=== PATIENT | female | born 1975 | race Caucasian/White ===

== ENCOUNTER 2016-07-22 00:02 | Emergency (ER) | payer SELFPAY ==
[~2016-07-22] VITALS: Ht 162.6 cm; Wt 81.5 kg
[~2016-07-22 00:02] MED LIST: ACET325T33 PO; NAPR-260 PO
[2016-07-22 00:06] VITALS: Ht 162.6 cm; Wt 81.5 kg
== END 2016-07-22 02:09 | disposition left against medical advice (07) ==
LOC: E/R 00:02
DX: Z53.21 Procedure and treatment not carried out due to patient leaving prior to being seen by health care provider (principal)

== ENCOUNTER 2016-10-25 08:59 | Emergency (ER) | payer OTHER ==
[~2016-10-25] VITALS: Wt 72.7 kg
[2016-10-25] MEDS ORDERED: FLUORESCEIN STRIP LEFT EYE ONE (09:30)
[2016-10-25] MEDS ORDERED: TETRACAINE 0.5% 4 ML OPH LEFT EYE ONE (09:30)
[2016-10-25] MEDS ORDERED: CPR3OO3.5 LEFT EYE (09:55)
[2016-10-25] MEDS ORDERED: IBUP-1542 PO (09:55)
--- NOTE | 2016-10-25 10:16 | ERD ---
ER Documentation Chief Complaint Date/Time DATE: 10/25/16 TIME: 10:13 Chief Complaint pink eye lJahaira HPI Patient is a 41-year-old female who presents to the ED with left eye redness and itchiness and pain 3 days. She states that she went to her primary care doctor and was given Polytrim drops. However she states that her symptoms have not improved. She states that her doctor told her to return and see her but she came to the ER instead. She has not seen a specialist. She states that she feels that something is in her eye. She denies pain with eye movement or blurry vision. She denies headache or dizziness. Denies fever or chills. No other complaints. ROS All systems reviewed and are negative except as per history of present illness. Medications Home Meds Active Scripts Ibuprofen* (Motrin*) 600 Mg Tab, 600 MG PO Q6, #30 TAB Prov:ROHAN GRANGER PA-C 10/25/16 Ciprofloxacin Opht* (Ciloxan*) 0.3%-3.5 Opht Oint, 1 APPLIC LEFT EYE DAILY for 7 Days, EA Prov:ROHAN GRANGER PA-C 10/25/16 Naproxen* (Naprosyn*) 500 Mg Tablet, 500 MG PO BID Y for PAIN AND/OR INFLAMMATION, #30 TAB Prov:TAYLOR GARCIA MD 05/23/16 Acetaminophen* (Tylenol*) 325 Mg Tablet, 2 TAB PO Q8 Y for PAIN AND OR ELEVATED TEMP, #20 TAB Prov:GHAZAL MENENDEZ MD 11/02/15 Allergies Allergies: Coded Allergies: No Known Allergy (Unverified , 11/02/15) PMhx/Soc History of Surgery: Yes (c section x 2) Anesthesia Reaction: No Hx Neurological Disorder: No Hx Respiratory Disorders: No Hx Cardiac Disorders: No Hx Psychiatric Problems: No Hx Miscellaneous Medical Probl: No Hx Alcohol Use: No Hx Substance Use: No Hx Tobacco Use: No Smoking Status: Never smoker FmHx Family History: No coronary disease, No diabetes, No other Physical Exam Vitals Vital Signs Date Time Temp Pulse Resp B/P Pulse Ox O2 Delivery O2 Flow Rate FiO2 10/25/16 09:03 98.0 77 20 125/73 100 Physical Exam GENERAL: Well-developed, well-nourished female. Appears in no acute distress. HEAD: Normocephalic, atraumatic. EYES: Pupils are equally reactive bilaterally. EOMs grossly intact. Left eye has conjunctival erythema. No gross foreign bodies visible. No proptosis ENT: Moist mucous membranes. No uvula deviation. No kissing tonsils. No exudates. NECK: Supple. No lymphadenopathy or thyromegaly. No meningismus. negative kernig. negative brudinski. LUNG: Clear to auscultation bilaterally. No rhonchi, wheezing, rales or coarse breath sounds. HEART: Regular rate and rhythm. No murmurs, rubs or gallops. SKIN: Normal color. Warm and dry. No rashes or lesions. Capillary refill < 2 seconds Results 24 hrs Current Medications Medications (Trade) Dose Ordered Sig/[place] Route PRN Reason Start Time Stop Time Status Last Admin Dose Admin Fluorescein Sodium (Uqcpg-D-Wspqd) 1 strip ONCE ONCE LEFT EYE 4 09:30 4 09:31 DC Tetracaine HCl (Tetracaine 0.5% Steri-Unit [place]) 1 drop ONCE ONCE LEFT EYE 10/25/16 09:30 4 09:31 DC Procedures/MDM ER COURSE: I kept the patient and/or family informed of laboratory and diagnostic imaging results throughout the emergency room course. PROCEDURES Visual acuity. Tetracaine and fluorescein and Wood's lamp MEDICAL DECISION MAKING: This is a 41-year-old female who presents with left eye pain and itchiness 2 days. Vital signs were reviewed. Patient is afebrile. Patient is not hypoxic. Patient is not toxic or ill-appearing. I examined eye under [place] lamp. No foreign bodies visualized or stain uptake. No corneal abrasions. No dendritic lesions or ulcers. No hyphema. Low suspicion for acute angle closure glaucoma , retinal detachment, arterial occlusion, hemorrhage, fracture, foreign body, ruptured globe, orbital cellulitis. Patient has eye redness of unknown etiology. I advised patient that she should follow-up with the [facility] today. I will be switching her drops to see CILOXAN drops. DISCHARGE: At this time, patient is stable for discharge and outpatient management with no new complaints during the ER course. Patient was sent home with ciprofloxacin drops, Motrin for pain in the [facility] to follow-up with today.. Patient will be discharged home with instructions to recheck for new or worsening symptoms such as fever, nausea, weakness, LOC and to follow up with primary care in the next 1-2 days. Patient was advised to return to the ER for any new or worsening symptoms. Plan was discussed and patient and/or family understands and agrees. Home instructions were given. Departure Diagnosis: Primary Impression: Eye problem Condition: Stable Patient Instructions: Corneal Injury Referrals: [facility] Hours: Mon - Fri 9:00 AM - 5:00 PM Additional Instructions: Call your primary care doctor TOMORROW for an appointment during the next 1-2 days.See the doctor sooner or return here if your condition worsens before your appointment time. ROHAN GRANGER PA-C Oct 25, 2016 10:16
== END 2016-10-25 10:02 | disposition home or self-care (01) ==
LOC: FTE 08:59
DX: H57.8 Other specified disorders of eye and adnexa (principal)
CPT/HCPCS: 99283

== ENCOUNTER 2016-12-23 08:29 | Emergency (ER) | payer OTHER ==
[~2016-12-23] VITALS: Ht 162.6 cm; Wt 81.6 kg
[~2016-12-23 08:29] MED LIST changes: +CPR3OO3.5 LEFT EYE; +IBUP-1542 PO
[2016-12-23 08:33] VITALS: Ht 162.6 cm; Wt 81.6 kg
[2016-12-23 09:27] LABS: ADD SCAN DIFF NO
[2016-12-23 09:29] LABS: BASOPHILS % 0.3 % (0.0-2.0); EOSINOPHILS # 0.2 10^3/ul (0.0-0.5); EOSINOPHILS % 2.2 % (0.0-7.0); HEMATOCRIT 36.3 % (37.0-47.0); HEMOGLOBIN 11.5 g/dl (12.0-16.0); LYMPHOCYTES # 1.9 10^3/ul (0.8-2.9); LYMPHOCYTES % 24.9 % (15.0-51.0); MEAN CORPUSCULAR HEMOGLOBIN 27.1 pg (29.0-33.0); MEAN CORPUSCULAR HGB CONC 31.7 g/dl (32.0-37.0); MEAN CORPUSCULAR VOLUME 85.4 fl (82.0-101.0); MEAN PLATELET VOLUME 12.4 fl (7.4-10.4); MONOCYTE # 0.4 10^3/ul (0.3-0.9); MONOCYTES % 5.8 % (0.0-11.0); NEUTROPHIL # 5.1 10^3/ul (1.6-7.5); NEUTROPHILS % 66.5 % (39.0-77.0); PLATELET COUNT 215 10^3/UL (140-415); RED BLOOD COUNT 4.25 10^6/ul (4.20-5.40); RED CELL DISTRIBUTION WIDTH 14.9 % (11.5-14.5); WHITE BLOOD COUNT 7.6 10^3/ul (4.8-10.8)
[2016-12-23 09:43] LABS: ADD UMIC YES; URINE BILIRUBIN (Dip) NEGATIVE (NEGATIVE); URINE BLOOD (Dip) 2+ (NEGATIVE); URINE COLOR LT. YELLOW (YELLOW); URINE GLUCOSE (Dip) NEGATIVE (NEGATIVE); URINE KETONES (Dip) NEGATIVE (NEGATIVE); URINE LEUKOCYTE ESTERASE (Dip) NEGATIVE (NEGATIVE); URINE NITRITE (Dip) NEGATIVE (NEGATIVE); URINE TOTAL PROTEIN (Dip) NEGATIVE (NEGATIVE); URINE UROBILINOGEN (Dip) 0.2 E.U./dL (0.1-1.0)
[2016-12-23 10:01] LABS: SQUAMOUS EPITHELIAL CELL,UR FEW; URINE RBCS 0-2 /HPF (0)
--- NOTE | 2016-12-23 10:06 | RADRPT ---
PROCEDURE: OBSTETRICAL ULTRASOUND WITH ENDOVAGINAL IMAGES CLINICAL INDICATION: Vaginal Bleed () TECHNIQUE: Multiple sonographic images of the pelvis were obtained utilizing a transabdominal and endovaginal technique. The images were reviewed on a PACS workstation. COMPARISON: None. LMP: 11/04/2016 FINDINGS: The uterus measures 8.6 x 5.0 x 6.0 cm. There is a 3.0 cm posterior subserosal fibroid at the level of the upper body. There is a 1.5 cm subserosal fibroid to the right of midline. There is a single intrauterine with mean sac diameter of 0.95 cm and crown-rump length of 0.39 cm at the level of the cervix which is consistent with a gestational age of 5 weeks, 6 days . The estimated date of delivery by ultrasound is 08/19/2017 . The estimated gestational age by LMP is 7 weeks, 0 days . The estimated date of delivery by LMP is 08/11/2017 . No heart tones are detected. The right ovary measures 3.5 x 2.0 x 2.8 cm. The left ovary measures 2.3 x 1.3 x 2.1 cm. There is no rmal vascular flow in both ovaries. There is a 1.8 cm complex cystic lesion with low level internal echoes and prominent peripheral vasc ular flow in the right ovary which is likely a hemorrhagic/corpus luteal cyst. No significant pelvic free fluid is identified. IMPRESSION: An intrauterine gestation without heart tones is identified at the level of the cervical canal consistent with an in progress, as above. 1.8 cm complex cystic lesion in the right ovary is likely a hemorrhagic/corpus luteal cyst. 2 uterine fibroids are identified measuring up to 3 cm. These findings were discussed with FRANCISCO Fisher over the phone on 12/23/2016 at 10:06 hours. RPTAT: EE Physician Minna Date Time Electronically viewed and signed by Burt Thomas Physician on 12/23/2016 10:06 /
[2016-12-23] MEDS ORDERED: ACET500C5 PO (10:27)
--- NOTE | 2016-12-23 10:51 | ERD ---
ER Documentation Chief Complaint Date/Time DATE: 12/23/16 TIME: 10:44 Chief Complaint vag bleed , 7 weeks preg HPI Patient is a 41-year-old female, A4 who presents to the emergency department for vaginal bleeding 2 days. Patient states yesterday she had a little bleeding however increased. Patient reports dark brown bleeding. Patient denies using any pads at this time. Patient states her last menstrual period was 2 months ago. Patient denies any abdominal or pelvic pain. Patient denies any vaginal discharge. Patient denies any fevers, chills , nausea, vomiting, chest pain, shortness of breath or LOC. ROS All systems reviewed and are negative except as per history of present illness. Medications Home Meds Active Scripts Acetaminophen* (Tylophen*) 500 Mg Capsule, 1 CAP PO Q6H Y for PAIN AND OR ELEVATED TEMP, #20 CAP Prov:MAI FISHER PA-C 12/23/16 Ibuprofen* (Motrin*) 600 Mg Tab, 600 MG PO Q6, #30 TAB Prov:ROHAN GRANGER PA-C 10/25/16 Ciprofloxacin Opht* (Ciloxan*) 0.3%-3.5 Opht Oint, 1 APPLIC LEFT EYE DAILY for 7 Days, EA Prov:ROHAN GRANGER PA-C 10/25/16 Naproxen* (Naprosyn*) 500 Mg Tablet, 500 MG PO BID Y for PAIN AND/OR INFLAMMATION, #30 TAB Prov:TAYLOR GARCIA MD 05/23/16 Acetaminophen* (Tylenol*) 325 Mg Tablet, 2 TAB PO Q8 Y for PAIN AND OR ELEVATED TEMP, #20 TAB Prov:GHAZAL MENENDEZ MD 11/02/15 Allergies Allergies: Coded Allergies: No Known Allergy (Unverified , 11/02/15) PMhx/Soc History of Surgery: Yes (c section x 2) Anesthesia Reaction: No Hx Neurological Disorder: No Hx Respiratory Disorders: No Hx Cardiac Disorders: No Hx Psychiatric Problems: No Hx Miscellaneous Medical Probl: No Hx Alcohol Use: No Hx Substance Use: No Hx Tobacco Use: No Physical Exam Vitals Vital Signs Date Time Temp Pulse Resp B/P Pulse Ox O2 Delivery O2 Flow Rate FiO2 12/23/16 08:33 97.5 78 16 144/80 99 Physical Exam GENERAL: Well-developed, well-nourished female. Appears in no acute distress. HEAD: Normocephalic, atraumatic. EYES: Pupils are equally reactive bilaterally. EOMs grossly intact. No conjunctival erythema. ENT: Moist mucous membranes. No uvula deviation. No kissing tonsils. NECK: Supple. No meningismus. Normal range of motion of the neck. LUNG: Clear to auscultation bilaterally. No rhonchi, wheezing, rales or coarse breath sounds. HEART: Regular rate and rhythm. No murmurs, rubs or gallops. ABDOMEN: No scars, ecchymosis or rashes noted. Soft, nontender, and nondistended. Positive bowel sounds in all four quadrants. No rebound tenderness , no guarding. (-) McBurney's point tenderness. No CVA tenderness. BACK: No midline tenderness. EXTREMITIES: Equal pulses bilaterally. No peripheral clubbing, cyanosis or edema. No unilateral leg swelling. NEUROLOGIC: Alert and oriented. Moving all four extremities without any difficulty. Normal speech. Steady gait. SKIN: Normal color. Warm and dry. No rashes or lesions. Result Diagram: 12/23/16 0857 Results 24 hrs Laboratory Tests Test 12/23/16 08:57 12/23/16 09:04 White Blood Count 7.610^3/ul Red Blood Count 4.2510^6/ul Hemoglobin 11.5g/dl Hematocrit 36.3% Mean Corpuscular Volume 85.4fl Mean Corpuscular Hemoglobin 27.1pg Mean Corpuscular Hemoglobin Concent 31.7g/dl Red Cell Distribution Width 14.9% Platelet Count 90563^3/UL Mean Platelet Volume 12.4fl Neutrophils % 66.5% Lymphocytes % 24.9% Monocytes % 5.8% Eosinophils % 2.2% Basophils % 0.3% Nucleated Red Blood Cells % 0.0/100WBC Neutrophils # 5.110^3/ul Lymphocytes # 1.910^3/ul Monocytes # 0.410^3/ul Eosinophils # 0.210^3/ul Basophils # 0.010^3/ul Nucleated Red Blood Cells # 0.010^3/ul Beta HCG, Quantitative 1587.6mIU/ml Urine Color LT. YELLOW Urine Clarity CLEAR Urine pH 6.0 Urine Specific Garnett <=1.005 Urine Ketones NEGATIVE Urine Nitrite NEGATIVE Urine Bilirubin NEGATIVE Urine Urobilinogen 0.2 E.U./dL Urine Leukocyte Esterase NEGATIVE Urine Microscopic RBC 0-2/HPF Urine Microscopic WBC NONE SEEN/HPF Urine Squamous Epithelial Cells FEW Urine Hemoglobin 2+ Urine Glucose NEGATIVE% Urine Total Protein NEGATIVE Procedures/MDM ED COURSE: The patient was stable throughout ED course. I kept the patient and/or family informed of laboratory and diagnostic imaging results throughout the ED course. DIAGNOSTIC IMAGING: Read by radiologist. DIAGNOSTIC IMAGING REPORT Patient: DAR PETTIT : 1975 Age: 41 Sex: F MR #: [id number] DOS: 12/23/16 0849 Ordering MD: MAI FISHER PA-C Location: [facility] Room/Bed: PROCEDURE: OBSTETRICAL ULTRASOUND WITH ENDOVAGINAL IMAGES CLINICAL INDICATION: Vaginal Bleed () TECHNIQUE: Multiple sonographic images of the pelvis were obtained utilizing a transabdominal and endovaginal technique. The images were reviewed on a PACS workstation. COMPARISON: None. LMP: 11/04/2016 FINDINGS: The uterus measures 8.6 x 5.0 x 6.0 cm. There is a 3.0 cm posterior subserosal fibroid at the level of the upper body. There is a 1.5 cm subserosal fibroid to the right of midline. There is a single intrauterine with mean sac diameter of 0.95 cm and crown-rump length of 0.39 cm at the level of the cervix which is consistent with a gestational age of 5 weeks, 6 days . The estimated date of delivery by ultrasound is 08/19/2017 . The estimated gestational age by LMP is 7 weeks, 0 days . The estimated date of delivery by LMP is 08/11/2017 . No heart tones are detected. The right ovary measures 3.5 x 2.0 x 2.8 cm. The left ovary measures 2.3 x 1.3 x 2.1 cm. There is normal vascular flow in both ovaries. There is a 1.8 cm complex cystic lesion with low level internal echoes and prominent peripheral vascular flow in the right ovary which is likely a hemorrhagic/corpus luteal cyst. No significant pelvic free fluid is identified. IMPRESSION: An intrauterine gestation without heart tones is identified at the level of the cervical canal consistent with an in progress, as above. 1.8 cm complex cystic lesion in the right ovary is likely a hemorrhagic/corpus luteal cyst. 2 uterine fibroids are identified measuring up to 3 cm. These findings were discussed with FRANCISCO Fisher over the phone on 2016 at 10:06 hours. RPTAT: EE Burt Thomas Physician Date Time Electronically viewed and signed by Burt Thomas Physician on 12/23/2016 10:06 RA/ CC: MAI FISHER PA-C MEDICAL DECISION MAKING: This is a 41-year-old female, G7, P2, A4, who presents to the ED with vaginal bleeding 2 days. Vital signs were reviewed. Patient was afebrile. Patient was hemodynamically stable. Urine test was positive. Quantitative b-HCG was 1587.6. Patient was A+, no RhoGam was given CBC showed no evidence of systemic infection, slight anemia noted. Patient's hemoglobin level was noted to be 11.5. Pelvic US showed An intrauterine gestation without heart tones is identified at the level of the cervical canal consistent with an in progress, as above. 1.8 cm complex cystic lesion in the right ovary is likely a hemorrhagic/corpus luteal cyst. 2 uterine fibroids are identified measuring up to 3 cm. Given these findings, the patient's presentation is most consistent with spontaneous . I have a much lower clinical concern for ectopic , ruptured ectopic , molar , subchorionic hematoma, complete , missed , placental abruption, placental previa, vasa previa, uterine rupture, anembyronic , preeclampsia. PRESCRIPTIONS: Tylenol DISCHARGE: At this time, patient is stable for discharge and outpatient management. Patient provided with a copy of all imaging and blood work obtained today. I had a conversation at length with the patient about the concerns of vaginal bleeding during the 1st trimester of . Patient and/or family understands that her vaginal bleeding can be a normal finding or a sign of miscarriage. I have instructed the patient to follow-up with her OBGYN in 1-2 days for further monitoring including a repeat b-HCG level. I have instructed the patient to promptly return to the ER at any time for any new or worsening symptoms including increased pain, nausea, vomiting, continued bleeding, weakness, syncope or fever. The patient and/or family expressed understanding of and agreement with this plan. All questions were answered. Home care instructions were provided. Departure Diagnosis: Primary Impression: Vaginal bleeding in patient at less than 20 weeks ges... Additional Impression: Spontaneous Condition: Stable Patient Instructions: Bleeding During Early Additional Instructions: Call your primary care doctor/OBGYN TOMORROW for an appointment during the next 1-2 days.See the doctor sooner or return here if your condition worsens before your appointment time. Repeat beta-hCG advised in 1 week to confirm down trending of beta-hCG. MAI FISHER PA-C Dec 23, 2016 10:51
[2016-12-23 11:00] VITALS: BP 166/97; PULSE 69; RESP 17; TEMP 97.5
== END 2016-12-23 11:00 | disposition home or self-care (01) ==
LOC: FTE 08:29
DX: O03.9 Complete or unspecified spontaneous abortion without complication (principal)
CPT/HCPCS: 36415; 76801; 76817; 81001; 84702; 85025; 86900; 86901